=== PATIENT | male | born 1985 | race Caucasian/White ===

== ENCOUNTER → 2016-09-22 | Outpatient (CLI) | payer OTHER ==
[~2016-09-22] MED LIST: ASPI325T45 PO; IBUP1CAP9 PO; OXYC-57 PO; PHEN-905 PO
--- NOTE | 2016-09-22 16:03 | DIAGNOSTIC IMAGING REPORT ---
ULTRASOUND TESTES AND SCROTUM CLINICAL HISTORY: Hydrocele. COMPARISON STUDY: No priors. TECHNIQUE: Real-time, grayscale, and color Doppler sonography of the testes and scrotum is performed. Images are reviewed in the transverse and longitudinal planes. FINDINGS: The testes are normal in size and homogeneous in echotexture. The right testis measures 5.0 x 2.5 x 2.3 cm and the left testis measures 3.7 x 2.8 x 2.7 cm. No intratesticular mass is seen. Testicular blood flow is normal and symmetric. Normal Doppler waveforms are identified in both testes. The epididymal heads are normal in appearance. The right epididymal head measures 1.0 cm in length and the left epididymal head measures 1.2 cm in length. There is a moderate left-sided hydrocele. No right-sided hydrocele or varicocele is seen. There is a large echogenic structure identified in the superior left groin. The appearance suggests a large hernia. IMPRESSION: 1. Unremarkable sonographic assessment of the testes. 2. There is a moderate left-sided hydrocele. 3. A large echogenic structure in the superior left hemiscrotum likely represents a large fat-containing inguinal hernia. Electronically signed by: Filiberto Cook M.D. 09/22/2016 4:02 PM Dictated Date/Time: 09/22/2016 4:00 PM
== END | disposition home or self-care (01) ==
LOC: C.ULTR 13:50
PROVIDERS: ATTEND Urology
DX: N43.3 Hydrocele, unspecified (principal)

== ENCOUNTER → 2016-10-14 | Outpatient (CLI) | payer OTHER ==
[~2016-10-14] MED LIST changes: -ASPI325T45 PO; -IBUP1CAP9 PO
[2016-10-14 09:37] LABS: BASO % 0.7 %; BASO ABS # 0.04 K/uL (0-0.2); COMPLETE YES; EOS % 2.7 %; HEMATOCRIT 46.6 % (42-52); IG% 0.3 %; LYMPH % 28.7 %; LYMPH ABS # 1.72 K/uL (1.2-3.4); MEAN CELL VOLUME 86.9 fL (80-100); MEAN CORPUSCULAR HEMOGLOBIN 29.1 pg (25-34); MEAN CORPUSCULAR HGB CONC 33.5 g/dl (32-36); MEAN PLATELET VOLUME 9.9 fL (7.4-10.4); MONO % 10.8 %; NEUT % 56.8 %; PLATELET COUNT 286 K/uL (130-400); RED BLOOD COUNT 5.36 M/uL (4.7-6.1)
[2016-10-14 10:00] LABS: BLOOD UREA NITROGEN 13 mg/dl (7-18); BUN/CREATININE RATIO 13.8 (10-20); CALCIUM 9.4 mg/dl (8.5-10.1); CARBON DIOXIDE 32 mmol/L (21-32); CHLORIDE 107 mmol/L (98-107); CREATININE 0.97 mg/dl (0.60-1.40); GLUCOSE 78 mg/dl (70-99); POTASSIUM 4.6 mmol/L (3.5-5.1); SODIUM 142 mmol/L (136-145)
== END | disposition home or self-care (01) ==
LOC: C.LAB 08:04
PROVIDERS: ATTEND Surgery
DX: Z01.812 Encounter for preprocedural laboratory examination (principal); K40.90 Unilateral inguinal hernia, without obstruction or gangrene, not specified as recurrent

== ENCOUNTER 2016-10-27 05:17 | Day surgery (SDC) | payer OTHER ==
[2016-10-13 14:41] VITALS: BMI 29.0
[~2016-10-27] VITALS: Ht 180.3 cm; Wt 95.5 kg
[~2016-10-27 05:17] MED LIST changes: -OXYC-57 PO
[2016-10-27 05:30] VITALS: BP 133/69; PULSE 74; TEMP 36.4; O2SAT 98; Ht 180.3 cm; Wt 95.5 kg
[2016-10-27] MEDS ORDERED: LACTATED RINGER'S 1000ML IV SCH (06:00)
[2016-10-27] MEDS ORDERED: PROPOFOL IV EMULSION 10 MG/ML 20 ML VIAL IV ONE ×2 (06:25→07:18)
[2016-10-27] MEDS ORDERED: DEXAMETHASONE SOD INJ 4 MG/ML VIAL ONE (06:25)
[2016-10-27] MEDS ORDERED: LIDOCAINE HCL 2% 2 ML VIAL (20MG/ML) ONE (06:25)
[2016-10-27] MEDS ORDERED: ONDANSETRON INJ 2 MG/ML 2 ML VIAL ONE (06:25)
[2016-10-27] MEDS ORDERED: FENTANYL CITRATE INJ 50 MCG/1 ML 2 ML VIAL ONE ×4 (06:26→08:55)
[2016-10-27] MEDS ORDERED: MIDAZOLAM HCL 1 MG/ML 2ML VIAL ONE (06:26)
--- NOTE | 2016-10-27 06:26 | History & Physical Bridge Note ---
H&P Re-Evaluation Bridge Note: I have examined the patient, reviewed the History & Physical and in the interval since the performance of the History & Physical I have noted the following changes of clinical significance: No changes noted to be here later. Procedure explained in more detail with pt including anticipated recovery period. pt marked
[2016-10-27] MEDS ORDERED: CEFOXITIN SOD 1 GM VIAL ONE (06:31)
[2016-10-27] MEDS ORDERED: BUPIVACAINE 0.5 % 5 MG/1 ML MPF 30ML VIAL ONE (06:53)
[2016-10-27] MEDS ORDERED: BACITRACIN 50000 UNIT VIAL ONE (06:54)
[2016-10-27] MEDS ORDERED: CEFAZOLIN SOD 1 GM VIAL ONE (07:13)
--- NOTE | 2016-10-27 08:23 | [facility] Post Operative Brief Note ---
Immediate Operative Summary Operative Date Oct 27, 2016. Pre-Operative Diagnosis Left inguinal hernia, hydrocele Post-Operative Diagnosis Left inguinal hernia indirect and incarcerated omentum Procedure(s) Performed Open left indirect hernia repair and resection of incarcerated omentum Surgeon Dr Dao Potts Dynamite Packing Machine Feeder Surgeon(s) Stephane Lazo PA-C Estimated Blood Loss 10cc Findings incarcerated omentum to scrotal sac Specimens A: Portion of Omentum B: Portion of left Hernia sac Drains 1/4 inch scrotal sac
[2016-10-27] MEDS ORDERED: LACTATED RINGER'S 1000ML 1,000 ML IV SCH (08:27)
[2016-10-27] MEDS ORDERED: ONDANSETRON INJ 2 MG/ML 2 ML VIAL IV PRN ×2 (08:30→08:45)
[2016-10-27] MEDS ORDERED: OXYC-57 PO (08:30)
[2016-10-27] MEDS ORDERED: MoRPHine SULFATE 2 MG/ML CARP IV PRN (08:30)
[2016-10-27] MEDS ORDERED: OXYCODONE/ACETAMINOPHEN 5-325 TAB PO PRN (08:30)
--- NOTE | 2016-10-27 08:33 | Discharge Instructions ---
Discharge Instructions Date of Service Oct 27, 2016. Visit Reason for Visit: Left Inguinal Hernia Discharge Discharge Diagnosis / Problem: left inguinal hernia repair Discharge Goals Goal(s): Decrease discomfort Activity Recommendations Activity Limitations: as noted below Lifting Limitations: no more than 10 pounds Shower/Bathe: tomorrow (after drain removed) Driving or Machine Use: resume 3 days after discharge (if not taking Percocet) Anesthesia . Post Anesthesia Instructions: If you have had General Anesthesia or IV Sedation: * Do not drive today. * Resume driving when surgeon permits. * Do not make important decisions or sign legal documents today. * Call surgeon for: 1. Temperature elevations greater than 101 degrees F. 2. Uncontrollable pain. 3. Excessive bleeding. 4. Persistent nausea and vomiting. 5. Medication intolerance (nausea, vomiting or rash). * For nausea and vomiting use only clear liquids such as: tea, soda, bouillon until nausea subsides, then gradually increase diet as tolerated. * If you have any concerns or questions, call your surgeon's office. If physician is unavailable and it is an emergency, call 911 or go to the nearest emergency room. . Instructions / Follow-Up Instructions / Follow-Up Dr. Potts's office tomorrow (Monday) at 11:00 to have drain removed, call [phone] if you need to change the time Ice left groin off and on alternating every 20 minutes until bedtime Wear scrotal support as needed for comfort Diet Recommendations Recommended Home Diet: no limitations Procedures Procedures Performed: Open left indirect hernia repair and resection of incarcerated omentum Pending Studies Studies pending at discharge: no Medical Emergencies . Who to Call and When: Medical Emergencies: If at any time you feel your situation is an emergency, please call 911 immediately. . Non-Emergent Contact Non-Emergency issues call your: Surgeon Call Non-Emergent contact if: you have a fever, temperature is above 101.5, your pain is not controlled, wound has increased redness . . "Provider Documentation" section prepared by Stephane Lazo.
[2016-10-27] MEDS ORDERED: EpHEDrine SULFATE INJ 50 MG/ML AMP IV PRN (08:45)
[2016-10-27] MEDS ORDERED: FENTANYL CITRATE INJ 50 MCG/1 ML 2 ML VIAL IV PRN (08:45)
[2016-10-27] MEDS ORDERED: PROMETHAZINE HCL INJ 6.25 MG in SODIUM CHLORIDE 0.9% 50ML 50 ML IV PRN (08:45)
[2016-10-27] MEDS ORDERED: ATROPINE SULFATE 0.1 MG/ML 5ML SYR IV PRN (08:45)
--- NOTE | 2016-10-27 08:48 | OPERATIVE REPORT ---
DATE OF OPERATION: 10/27/2016 PREOPERATIVE DIAGNOSIS: Large left inguinal hernia hydrocele. POSTOPERATIVE DIAGNOSIS: Incarcerated omentum and a left indirect hernia. PROCEDURE: Repair left indirect inguinal hernia (closure of the internal ring) and resection of incarcerated omentum. SURGEON: Dr. Potts. QUILL MACHINE TENDER: Darío Lazo PA-C. OPERATION AND FINDINGS: SUMMARY: The patient was brought into the operating room theater. The scrotal area and the left lower quadrant was prepped with Betadine scrubbing solution and properly draped. Systemic antibiotics was given. We used 0.5% Marcaine without epinephrine to infiltrate 2 fingerbreadths medial anterior superior iliac crest, subfascially the external oblique. An incision was made parallel to the inguinal ligament, taken through subcutaneous tissue. Electrocautery was used. To take down onto the external oblique more local was used underneath the external oblique, which was opened along the cord of its fibers. We extended the incision towards the scrotal area to visualize the external ring more significantly and what we were able to identify once we opened to the external ring, the patient had a tight ring with significant induration of the cord and contents. We identified the ilioinguinal nerve and placed underneath hemostats and left it elevated superiorly. At this point, using blunt dissection, I elevated the cord which was quite significantly scarred in with a significant amount of tissue . As we elevated over a [place] drain distally I dissected mostly bluntly to free it from the scrotal area as much as possible. At this point I then opened around the cord structures to see the contents and we identified that the patient had omentum in the area. We basically delivered everything from the scrotal area and placed it on the abdomen. There were a few holes in the omentum that were identified and I closed this with interrupted silk sutures. My intent was to return everything intraabdominally. The internal ring was quite taunt; it did not allow me even relaxation to return this. Therefore, I resected the omentum, ligating 2-0 silk suture. Once we reduced everything intraabdominally the defect was the size of my finger in the indirect area. Distally, we had elevated the cord and its structures out. There was no hydrocele appreciated, but the hernial sac went all the way down onto the scrotal area. We freed this up from the cord structures, resected the hernial sac and excess tissue around the cord. I then oversewed it imbricating it with 3-0 chromic suture to avoid the 2 layers to contact. The indirect area the peritoneum was very flimsy but we were able to identify a plane between that and the cord structures and then I closed the peritoneum with a 3-0 chromic suture in a running fashion. We checked the cord structures and testicle for hemostasis and appeared quite satisfactory. I then closed the internal area with a 2-0 silk suture interrupted, approximated transversalis fascia to the shelving portion of the inguinal ligament. I did not even close the direct area because there was no obvious defect. Once we closed the internal ring, there was enough just to accommodate the tip of a hemostat. The area was then checked for hemostasis and appeared satisfactory. We returned the testicle down into the scrotal sac, but then I elected to drain this with a quarter inch Mireille drain. I placed a finger from inside the incisional to the scrotal area, made a small incision in the scrotum and placed a 1/4 inch Mireille drain through the scrotal sac along the incision and underneath the external oblique in the groin. The external oblique closed with interrupted 3-0 silk suture, reconstructing the external ring, avoiding the nerve. 3-0 Dexon subcutaneously, loni for skin edges. Dressing was applied. The procedure was tolerated well by the patient. Approximately 10 mL blood loss. The patient was taken to recovery room in good condition. I attest to the content of the Intraoperative Record and any orders documented therein. Any exceptio ns are noted below.
[2016-10-27 09:25] VITALS: BP 118/60; PULSE 73; TEMP 36.5; O2SAT 97
[2016-10-27 09:55] VITALS: BP 118/57; PULSE 74; TEMP 36.7; O2SAT 98
[2016-10-27 10:30] VITALS: BP 123/69; PULSE 106; TEMP 37; O2SAT 98
--- NOTE | 2016-10-27 11:14 | Anesthesiology Progress Note ---
Anesthesia Post Op Note Date & Time Oct 27, 2016 at 11:13 Vital Signs Pain Intensity: 3 Vital Signs Past 12 Hours Date Time Temp Pulse Resp B/P Pulse Ox O2 Delivery O2 Flow Rate FiO2 10/27/16 10:30 37 106 20 123/69 98 Room Air 10/27/16 09:55 36.7 74 20 118/57 98 Room Air 10/27/16 09:25 36.5 73 20 118/60 97 Room Air 10/27/16 09:15 36.2 66 16 130/64 96 Room Air 10/27/16 09:05 66 16 139/77 96 Room Air 10/27/16 08:55 79 16 128/65 97 Room Air 10/27/16 08:45 82 16 132/76 99 Mask 10 10/27/16 08:35 74 16 152/70 99 Mask 10 10/27/16 08:27 36.5 70 16 120/86 99 Mask 10 10/27/16 05:30 36.4 74 18 133/69 98 Room Air Notes Mental Status: alert / awake / arousable, participated in evaluation Pt Amnestic to Procedure: Yes Nausea / Vomiting: adequately controlled Pain: adequately controlled Airway Patency, RR, SpO2: stable & adequate BP & HR: stable & adequate Hydration State: stable & adequate Anesthetic Complications: no major complications apparent
[2016-10-27 11:45] VITALS: BP 95/66; PULSE 81; O2SAT 97
--- NOTE | 2016-10-27 12:48 | Medical Student: [facility] ---
Immediate Operative Summary Operative Date Oct 27, 2016. Pre-Operative Diagnosis Left inguinal hernia with left hydrocele Post-Operative Diagnosis left inguinal hernia with incarcerated omentum Procedure(s) Performed Left inguinal hernia repair with incarcerated omentum resection Surgeon Dr. Potts Teacher Specialist Surgeon(s) HEAVEN Burt Estimated Blood Loss 10 cc Findings Incarcerated omentum in scrotum Specimens Resected Omentum Partial hernia sac Complication(s) None Disposition Recovery Room / PACU
== END 2016-10-27 11:45 | disposition home or self-care (01) ==
LOC: C.ACU 05:17
PROVIDERS: ATTEND Surgery
DX: K40.30 Unilateral inguinal hernia, with obstruction, without gangrene, not specified as recurrent (principal); N43.3 Hydrocele, unspecified; Z98.890 Other specified postprocedural states

== ENCOUNTER → 2017-05-12 | Outpatient (CLI) | payer OTHER | END | disposition home or self-care (01) | LOC: C.RDSM 08:18 | PROVIDERS: ATTEND Family Medicine Sports Medicine | DX: M54.5 Low back pain (principal) ==